=== PATIENT | female | born 2000 | race Two or more races ===

== ENCOUNTER 2018-01-28 14:00 | Inpatient (IN) ==
[2018-01-28] MEDS ORDERED: SODIUM CHLORIDE 0.9% 1,000 ML IV STA (14:32)
[2018-01-28] MEDS ORDERED: HYDROmorphone 2 MG/1 ML VIAL IV STA (14:38)
[2018-01-28] MEDS ORDERED: ACETAMINOPHEN 500 MG TABLET PO STA (14:38)
[2018-01-28] MEDS ORDERED: ONDANSETRON 4 MG/2 ML VIAL IV STA (14:38)
[2018-01-28] MEDS ORDERED: cefTRIAXone 1,000 MG in SODIUM CHLORIDE 0.9% 100 ML IV STA (14:38)
[2018-01-28 14:41] LABS: Basophils # 0.1 10*3/uL (0.0-0.2); Basophils % 0.3 % (0.0-0.8); Hematocrit 35.6 VOL% (35.7-47.0); Hemoglobin 11.6 GM/DL (12.0-16.0); Immature Granulocytes % 0.6 %; Immature Granulocytes Absolute 0.12 #; Lymphocytes # 1.5 10*3/uL (1.4-4.0); Lymphocytes % 7.4 % (21.3-54.2); Mean Corpuscular HGB Conc 32.6 GM/DL (32-36); Mean Corpuscular Hemoglobin 28 PG (27-34); Mean Corpuscular Volume 84.4 FL (87-102); Mean Platelet Volume 10.2 FL (9.6-12.0); Monocytes # 1.9 10*3/uL (0.11-0.8); Monocytes % 9.4 % (1.7-12.7); Neutrophils # 16.5 10*3/uL (1.4-7.4); Neutrophils % 82.3 % (38.7-73.9); Platelet Count 254 T/CUMM (130-400); Red Blood Count 4.22 MC/CUMM (3.8-5.5); Red Cell Distribution Width 14.6 % (9.3-17.3); White Blood Count 20.1 T/CUMM (4-12)
[2018-01-28 14:55] LABS: Apearance,Urine HAZY (Clear); Bilirubin,Urine Negative (Negative); Blood, Urine Large mg/dL (Negative); Glucose,Urine (UA) Negative (Negative); Ketones,Urine 25 mg/dL (Negative); Nitrite,Urine Negative (Negative); Protein,Urine 30 MG/DL; Urine Color Dark yellow (Yellow); Urine Specific Gravity 1.005 (1.001-1.035)
[2018-01-28 14:56] LABS: Bacteria,Urine Few /HPF (Few); Mucus,Urine TRACE /LPF (Occasional); RBC,Urine 35-40 /HPF (0-4); Squamous Epithelial Cell,Urine Moderate /HPF (0-10); WBC,Urine 25-30 /HPF (0-6)
[2018-01-28 15:16] LABS: Albumin 3.6 G/DL (3.4-5.0); Band Neutrophils 1 % (0-10); Bilirubin,Total 0.4 MG/DL (0.2-1.0); Calcium 8.7 MG/DL (8.5-10.1); Lymphocytes 12 % (20-55); Osmolality,Calculated 265.2 MOS/KG (273-304); Platelet Estimate Normal; Potassium 3.6 MMOL/L (3.5-5.1); Segmented Neutrophils 84 % (50-85); Total Cells Counted 100; Total Protein 7.9 G/DL (6.4-8.3)
[2018-01-28] MEDS ORDERED: SODIUM CHLORIDE 0.9% 1,400 ML IV ONE (16:15)
[2018-01-28] MEDS ORDERED: ZALEPLON 5 MG CAPSULE PO PRN (16:16)
[2018-01-28] MEDS ORDERED: ONDANSETRON 4 MG/2 ML VIAL IV PRN (16:16)
[2018-01-28] MEDS ORDERED: MORPHINE 4 MG/1 ML VIAL IV PRN (16:16)
[2018-01-28] MEDS: LEVOFLOXACIN INJ 500 MG in PREMIX 1 EACH IV SCH (16:44)
[2018-01-28] MEDS: MEROPENEM 1,000 MG in SYRINGE 1 EACH IV SCH (18:18)
[2018-01-28] MEDS: SODIUM CHLORIDE 0.9% 1,000 ML IV SCH (18:51)
[2018-01-28] MEDS: ENOXAPARIN 40 MG/0.4 ML SYRINGE SUBCUT SCH (21:10)
[2018-01-28] MEDS: DOCUSATE SODIUM 100 MG CAPSULE PO SCH (21:10)
[2018-01-28] MEDS: ACETAMINOPHEN 325 MG TABLET PO PRN (21:56)
[2018-01-29] MEDS: MEROPENEM 1,000 MG in SYRINGE 1 EACH IV SCH ×3 (00:47→16:00)
[2018-01-29] MEDS: SODIUM CHLORIDE 0.9% 1,000 ML IV SCH ×3 (00:47→16:40)
[2018-01-29 07:07] LABS: Basophils % 0.3 % (0.0-0.8); Eosinophils % 0.2 % (0.00-10.9); Hematocrit 31.5 VOL% (35.7-47.0); Hemoglobin 10.4 GM/DL (12.0-16.0); Immature Granulocytes % 0.5 %; Immature Granulocytes Absolute 0.07 #; Lymphocytes # 1.4 10*3/uL (1.4-4.0); Lymphocytes % 10.5 % (21.3-54.2); Mean Corpuscular Hemoglobin 27 PG (27-34); Mean Corpuscular Volume 82.9 FL (87-102); Mean Platelet Volume 10.5 FL (9.6-12.0); Monocytes # 1.6 10*3/uL (0.11-0.8); Monocytes % 11.8 % (1.7-12.7); Neutrophils # 10.4 10*3/uL (1.4-7.4); Neutrophils % 76.7 % (38.7-73.9); Platelet Count 205 T/CUMM (130-400); Red Cell Distribution Width 14.6 % (9.3-17.3); White Blood Count 13.5 T/CUMM (4-12)
[2018-01-29 07:36] LABS: Bilirubin,Total 0.5 MG/DL (0.2-1.0); Osmolality,Calculated 270.7 MOS/KG (273-304); Potassium 3.4 MMOL/L (3.5-5.1); Total Protein 6.3 G/DL (6.4-8.3)
[2018-01-29] MEDS: PANTOPRAZOLE 40 MG TABLET PO SCH (10:01)
[2018-01-29] MEDS: DOCUSATE SODIUM 100 MG CAPSULE PO SCH ×2 (10:01→22:06)
[2018-01-29] MEDS: ENOXAPARIN 40 MG/0.4 ML SYRINGE SUBCUT SCH ×2 (10:02→22:06)
[2018-01-29] MEDS: ACETAMINOPHEN 325 MG TABLET PO PRN (12:25)
[2018-01-29] MEDS ORDERED: ACETAMINOPHEN 325 MG TABLET PO PRN (12:26)
[2018-01-29] MEDS: LEVOFLOXACIN INJ 500 MG in PREMIX 1 EACH IV SCH (16:05)
[2018-01-30] MEDS: SODIUM CHLORIDE 0.9% 1,000 ML IV SCH ×2 (01:19→08:34)
[2018-01-30] MEDS: MEROPENEM 1,000 MG in SYRINGE 1 EACH IV SCH ×2 (01:19→08:34)
[2018-01-30] MEDS ORDERED: POTASSIUM CHLORIDE 20 MEQ TABLET PO ONE (07:48)
[2018-01-30 07:52] VITALS: BP 98/56
[2018-01-30] MEDS: DOCUSATE SODIUM 100 MG CAPSULE PO SCH (08:05)
[2018-01-30] MEDS: ENOXAPARIN 40 MG/0.4 ML SYRINGE SUBCUT SCH (08:34)
[2018-01-30] MEDS: PANTOPRAZOLE 40 MG TABLET PO SCH (08:54)
[2018-02-04 09:30] LABS: Source URINE
== END 2018-01-30 09:28 | disposition home or self-care (01) | DRG 872 ==
LOC: N.ED 14:00 → N.EDINP 16:11 → N.5E 18:03